=== PATIENT | female | born 1995 | race Caucasian/White ===

== ENCOUNTER 2016-11-10 14:18 | Emergency (ER) | payer OTHER ==
[~2016-11-10] VITALS: Ht 165.1 cm; Wt 80.0 kg
[2016-11-10 14:36] VITALS: BP 134/74; PULSE 124; RESP 18; TEMP 98; O2SAT 99
[2016-11-10 15:10] LABS: AUTOMATED NEUTROPHIL # 6.8 TH/MM3 (1.8-7.7); BASOPHIL % 0.2 % (0.0-2.0); HEMATOCRIT 42.9 % (35.0-46.0); HEMO FLAGS DIFF FINAL; LYMPH % 24.6 % (9.0-44.0); LYMPHOCYTE # 2.4 TH/MM3 (1.0-4.8); MEAN CELL VOLUME 82.9 FL (80.0-100.0); MEAN CORPUSCULAR HEMOGLOBIN 28.3 PG (27.0-34.0); MEAN CORPUSCULAR HGB CONC 34.1 % (32.0-36.0); MONO % 4.5 % (0.0-8.0); NEUT % 70.7 % (16.0-70.0); PLATELET COUNT 299 TH/MM3 (150-450); RED BLOOD COUNT 5.17 MIL/MM3 (4.00-5.30); RED CELL DISTRIBUTION WIDTH 14.7 % (11.6-17.2); WHITE BLOOD COUNT 9.6 TH/MM3 (4.0-11.0)
[2016-11-10 15:35] LABS: ALT (GPT) 46 U/L (10-53); ANION GAP 8 MEQ/L (5-15); AST (GOT) 26 U/L (15-37); BICARBONATE 24.6 MEQ/L (21.0-32.0); BLOOD UREA NITROGEN 8 MG/DL (7-18); CHLORIDE 110 MEQ/L (98-107); GLOMERULAR FILTRATION RATE 106 ML/MIN (>89); POTASSIUM 3.4 MEQ/L (3.5-5.1); SODIUM (NA) 143 MEQ/L (136-145)
[2016-11-10 15:38] LABS: ALKALINE PHOSPHATASE 105 U/L (45-117); TOTAL BILIRUBIN ADULT 0.2 MG/DL (0.2-1.0)
[2016-11-10 15:48] VITALS: BP 147/78; PULSE 89; RESP 17; O2SAT 98
--- NOTE | 2016-11-10 15:51 | RADRPT ---
EXAM DATE/TIME: 11/10/2016 15:23 [facility] COMPARISON: No previous studies available for comparison. INDICATIONS : Right ankle pain, unknown injury. MEDICAL HISTORY : None. SURGICAL HISTORY : None. ENCOUNTER: Initial ACUITY: 1 day PAIN SCORE: 10/10 LOCATION: Right ankle. FINDINGS: There is fracture dislocation about the ankle with a oblique fracture through the distal fibula. The re is a oblique fracture through the posterior malleolus of the tibia with moderate angulation and wi th dislocation of the shaft of the tibia anterior to the talus. There is disruption of the ankle mor tise and the distal tibia is also dislocated medially. No radiopaque foreign bodies. CONCLUSION: Fracture-dislocation of the ankle with both tibia and fibular fractures. Raj Dominguez MD on November 10, 2016 at 15:48 Board Certified Radiologist. This report was verified electronically.
--- NOTE | 2016-11-10 15:57 | PD ---
HPI Chief Complaint: Alcohol/Drug Intoxication Time Seen by Provider: 15:55 Travel History International Travel<30 days: No Contact w/Intl Traveler<30days: No History of Present Illness HPI Patient comes in by EMS after being found intoxicated age. Patient denies any medical complaints or concerns. Patient's right ankle is noted to be slightly swollen. Patient states that she tripped and fell denies hitting her head or a loss consciousness. Denies any pain anywhere else. Patient states she is just resting currently. Patient is obviously intoxicated and is a poor and unreliable historian. [facility] Social History Alcohol Use: Yes Tobacco Use: No Allergies-Medications (Allergen,Severity, Reaction): Coded Allergies: No Known Allergies (Unverified , 11/10/16) Review of Systems ROS Limitations: Intoxication Except as stated in HPI: all other systems reviewed are Neg Physical Exam Exam Limitations: Intoxication Narrative GENERAL: Well-developed, overly nourished, in no acute distress, and non-ill appearing. SKIN: Focused skin assessment warm and dry. HEAD: Atraumatic. Normocephalic. EYES: Pupils equal and round. EOMI. No scleral icterus. No injection or drainage. ENT: No nasal bleeding or discharge. Mucous membranes pink and moist. NECK: Trachea midline. Supple. No nuclear rigidity. CARDIOVASCULAR: Regular rate and rhythm. No murmur appreciated. Dorsalis 2+, intact, and equal bilaterally. Capillary refill less than 2 seconds.. RESPIRATORY: No accessory muscle use. No respiratory distress. Clear to auscultation. Breath sounds equal bilaterally. MUSCULOSKELETAL: No obvious deformities. No clubbing. No cyanosis. No edema. NEUROLOGICAL: Awake and alert. No obvious cranial nerve deficits. Motor grossly within normal limits. PSYCHIATRIC: Appropriate mood and affect; insight and judgment normal. Data Data Last Documented VS Vital Signs Date Time Temp Pulse Resp B/P Pulse Ox O2 Delivery O2 Flow Rate FiO2 11/10/16 15:48 89 17 147/78 98 11/10/16 14:36 98.0 Orders Complete Blood Count With Diff (11/10/16 14:58) Comprehensive Metabolic Panel (11/10/16 14:58) Drug Screen, Random Urine (11/10/16 14:58) Alcohol (Ethanol) (11/10/16 14:58) Ankle, Limited (Ap&Lat) (11/10/16 ) Ct Brain W/O Iv Contrast(Rout) (11/10/16 ) Ct Cerv Spine W/O Contrast (11/10/16 ) Splint Or Brace Apply/Monitor (11/10/16 15:51) Beta Hcg (Quant/Titer) (11/10/16 16:00) Ed Urine Pregnancytest Poc (11/10/16 16:01) Labs Laboratory Tests Test 11/10/16 14:55 White Blood Count 9.6 TH/MM3 Red Blood Count 5.17 MIL/MM3 Hemoglobin 14.6 GM/DL Hematocrit 42.9 % Mean Corpuscular Volume 82.9 FL Mean Corpuscular Hemoglobin 28.3 PG Mean Corpuscular Hemoglobin 34.1 % Concent Red Cell Distribution Width 14.7 % Platelet Count 299 TH/MM3 Mean Platelet Volume 6.7 FL Neutrophils (%) (Auto) 70.7 % Lymphocytes (%) (Auto) 24.6 % Monocytes (%) (Auto) 4.5 % Eosinophils (%) (Auto) 0.0 % Basophils (%) (Auto) 0.2 % Neutrophils # (Auto) 6.8 TH/MM3 Lymphocytes # (Auto) 2.4 TH/MM3 Monocytes # (Auto) 0.4 TH/MM3 Eosinophils # (Auto) 0.0 TH/MM3 Basophils # (Auto) 0.0 TH/MM3 CBC Comment DIFF FINAL Differential Comment Sodium Level 143 MEQ/L Potassium Level 3.4 MEQ/L Chloride Level 110 MEQ/L Carbon Dioxide Level 24.6 MEQ/L Anion Gap 8 MEQ/L Blood Urea Nitrogen 8 MG/DL Creatinine 0.70 MG/DL Estimat Glomerular Filtration 106 ML/MIN Rate Random Glucose 94 MG/DL Calcium Level 8.5 MG/DL Total Bilirubin 0.2 MG/DL Aspartate Amino Transf 26 U/L (AST/SGOT) Alanine Aminotransferase 46 U/L (ALT/SGPT) Alkaline Phosphatase 105 U/L Total Protein 7.8 GM/DL Albumin 4.0 GM/DL Ethyl Alcohol Level 303 MG/DL [facility] Medical Decision Making Medical Screen Exam Complete: Yes Emergency Medical Condition: Yes Differential Diagnosis Fracture, sprain, contusion, alcohol intoxication, acute abnormality, head injury, other Narrative Course Patient was initially seen and exam. Initial radiological studies were ordered. Patient signed out to Dr. Jarquin. Please see her documentation for final diagnosis and disposition. Gilberto Dong Nov 10, 2016 15:57
[2016-11-10] MEDS ORDERED: ONDANSETRON HCL 4 MG/2 ML VIAL ONE (16:14)
[2016-11-10] MEDS ORDERED: ONDANSETRON HCL 4 MG/2 ML VIAL IV PUSH ONE (16:15)
[2016-11-10] MEDS ORDERED: ETOMIDATE 20 MG/10 ML VIAL IV PUSH ONE (16:15)
[2016-11-10] MEDS ORDERED: MORPHINE SULFATE 4 MG/ML INJ IV PUSH ONE (16:15)
[2016-11-10] MEDS ORDERED: SODIUM CHLOR 0.9% 1000 ML INJ 1,000 ML IV ONE (16:15)
[2016-11-10 16:30] VITALS: O2SAT 99
--- NOTE | 2016-11-10 16:45 | PD ---
Physical Exam Date Seen by Provider: Nov 10, 2016 Data Data Last Documented VS Vital Signs Date Time Temp Pulse Resp B/P Pulse Ox O2 Delivery O2 Flow Rate FiO2 11/10/16 16:46 20 11/10/16 16:30 99 Nasal Cannula 6.00 11/10/16 15:48 89 147/78 11/10/16 14:36 98.0 Orders Complete Blood Count With Diff (11/10/16 14:58) Comprehensive Metabolic Panel (11/10/16 14:58) Drug Screen, Random Urine (11/10/16 14:58) Alcohol (Ethanol) (11/10/16 14:58) Ankle, Limited (Ap&Lat) (11/10/16 ) Ct Brain W/O Iv Contrast(Rout) (11/10/16 ) Ct Cerv Spine W/O Contrast (11/10/16 ) Splint Or Brace Apply/Monitor (11/10/16 15:51) Ed Urine Pregnancytest Poc (11/10/16 16:01) Etomidate Inj (Amidate Inj) (11/10/16 16:15) Morphine Inj (Morphine Inj) (11/10/16 16:15) Sodium Chlor 0.9% 1000 Ml Inj (Ns 1000 M (11/10/16 16:15) Ondansetron Inj (Zofran Inj) (11/10/16 16:15) Ondansetron Inj (Zofran Inj) (11/10/16 16:14) Ankle, Limited (Ap&Lat) (11/10/16 ) Ankle, Limited (Ap&Lat) (11/10/16 ) Haloperidol Inj (Haldol Inj) (11/10/16 17:00) Lorazepam Inj (Ativan Inj) (11/10/16 17:00) Fiberglass Short Leg Splint Ad (11/10/16 ) Fiberglass Sugartong Sp Ad Sl (11/10/16 ) ^ Sitter (11/10/16 17:22) Admit Order (Ed Use Only) (11/10/16 17:48) Labs Laboratory Tests Test 11/10/16 14:55 White Blood Count 9.6 TH/MM3 Red Blood Count 5.17 MIL/MM3 Hemoglobin 14.6 GM/DL Hematocrit 42.9 % Mean Corpuscular Volume 82.9 FL Mean Corpuscular Hemoglobin 28.3 PG Mean Corpuscular Hemoglobin 34.1 % Concent Red Cell Distribution Width 14.7 % Platelet Count 299 TH/MM3 Mean Platelet Volume 6.7 FL Neutrophils (%) (Auto) 70.7 % Lymphocytes (%) (Auto) 24.6 % Monocytes (%) (Auto) 4.5 % Eosinophils (%) (Auto) 0.0 % Basophils (%) (Auto) 0.2 % Neutrophils # (Auto) 6.8 TH/MM3 Lymphocytes # (Auto) 2.4 TH/MM3 Monocytes # (Auto) 0.4 TH/MM3 Eosinophils # (Auto) 0.0 TH/MM3 Basophils # (Auto) 0.0 TH/MM3 CBC Comment DIFF FINAL Differential Comment Sodium Level 143 MEQ/L Potassium Level 3.4 MEQ/L Chloride Level 110 MEQ/L Carbon Dioxide Level 24.6 MEQ/L Anion Gap 8 MEQ/L Blood Urea Nitrogen 8 MG/DL Creatinine 0.70 MG/DL Estimat Glomerular Filtration 106 ML/MIN Rate Random Glucose 94 MG/DL Calcium Level 8.5 MG/DL Total Bilirubin 0.2 MG/DL Aspartate Amino Transf 26 U/L (AST/SGOT) Alanine Aminotransferase 46 U/L (ALT/SGPT) Alkaline Phosphatase 105 U/L Total Protein 7.8 GM/DL Albumin 4.0 GM/DL Ethyl Alcohol Level 303 MG/DL [facility] Medical Record Reviewed: Yes Supervised Visit with BECCA: Yes Narrative Course I, Dr. Jarquin, have reviewed the advance practice practitioner's documentation and am in agreement, met with the patient face to face, made the diagnosis, and the medical decision making was done by me. *My assessment and Findings: Acute alcohol intoxication with right-sided fracture of the tibia and fibula Patient is a 20-year-old female who was found by EMS intoxicated. It was noted that her right ankle appeared swollen and her patient reports that she twisted her ankle Patient denies suicidal or homicidal ideations, reports that she had 3 drinks today and may have drank too much. After patient reduced, patient began to ambulate, patient require soft restraints as well as chemical sedation, xray ordered again to make sure fx was reduced Patient required mechanical sedation for her safety global safety officer at bedside case reviewed with dr. harrison, will keep patient NPO after midnight and plan for OR tomorrow case reviewed with patients father at patient's request [phone] does not want patient admitted to [facility], reports that he is a physician at a hospital in [facility], would like patient operated there call made to Dr. Harrison - will take patient off of OR schedule Critical Care Narrative Aggregate critical care time was 30 minutes. Time to perform other separately billable procedures was not included in the critical care time. My time did not include minutes spent treating any other patients simultaneously or on activities that did not directly contribute to the patient's treatment. The services I provided to this patient were to treat and/or prevent clinically significant deterioration that could result in: , decompensation, deterioration I provided critical care services requiring my management, as noted below: Chart data review, documentation time, medication orders and management, vital sign assessments/reviewing monitor data, ordering and reviewing lab tests, ordering and interpreting/reviewing x-rays and diagnostic studies, care of the patient and discussion of the patient with the admitting physicians. Procedures Procedure Narrative After the risks and benefits were discussed the following procedure was performed: 1)Conscious sedation: The patient was put in optimal position for the procedure. Patient was given 20 mg of etomidate IV as well as 4 mg of morphine as well as 4 mg of IV Zofran. Patient was placed on oxygen, ekg monitor and was placed on end tidal CO2, avionic technician at bedside Patient tolerated procedure well. 2) Right ankle fracture: patient with fracture dislocation to tibia and fibula. Traction and counter traction applied, ankle reduced. Post reduction films ordered. Patient splinted by cartography technician Sree Diagnosis Primary Impression: Alcohol intoxication Qualified Code: F10.120 - Alcohol intoxication, uncomplicated Additional Impression: Ankle fracture, right Qualified Code: S82.891A - Ankle fracture, right, closed, initial encounter Admitting Information Admitting Physician Requests: Admit Patient Instructions: General Instructions, Narcotic given in the ED, Moderate Sedation (ED) Additional Instruction: please follow up with orthopedic surgery as soon as possible return to ER as needed please do not ambulate on right lower extremity Please bring the copy of your xray reports as well as xray disc to your orthopedic surgeon's office for follow up Varsha Jarquin DO Nov 10, 2016 16:45
[2016-11-10 17:00] VITALS: BP 124/65; PULSE 89; RESP 18; O2SAT 98
[2016-11-10] MEDS ORDERED: HALOPERIDOL LACTATE 5 MG/ML AMP IM ONE (17:00)
[2016-11-10] MEDS ORDERED: LORazepam 2 MG/ML VIAL IM ONE (17:00)
--- NOTE | 2016-11-10 17:22 | RADRPT ---
EXAM DATE/TIME: 11/10/2016 16:34 [facility] COMPARISON: ANKLE RIGHT LIMITED (AP&LAT), November 10, 2016, 15:23. INDICATIONS : Post reduction of the right ankle. MEDICAL HISTORY : None. SURGICAL HISTORY : None. ENCOUNTER: Subsequent ACUITY: 1 day PAIN SCORE: 6/10 LOCATION: Right ankle. FINDINGS: 2 view examination of the ankle performed in fiberglass cast. In lateral projection, the tibia and t alus are no in alignment. The oblique fracture of the distal fibula is mildly angulated without disp lacement. CONCLUSION: Status post reduction of fracture/dislocation of the ankle. Raj Dominguez MD on November 10, 2016 at 17:19 Board Certified Radiologist. This report was verified electronically.
--- NOTE | 2016-11-10 17:42 | RADRPT ---
EXAM DATE/TIME: 11/10/2016 17:01 Two-view examination is performed in cast and compared to examination from one half hour before. The re is a change in the alignment of the distal fibular fracture, with slightly greater anterior angula tion and some posterior displacement. Ankle mortise is intact. Raj Dominguez MD on November 10, 2016 at 17:41 on November 10, 2016 Board Certified Radiologist. This report was verified electronically.
[2016-11-10 18:30] VITALS: BP 104/53; PULSE 82; RESP 18; O2SAT 98
--- NOTE | 2016-11-10 18:56 | RADRPT ---
EXAM DATE/TIME: 11/10/2016 18:39 [facility] COMPARISON: No previous studies available for comparison. INDICATIONS : Trauma. Fall. RADIATION DOSE: 31.36 CTDIvol (mGy) MEDICAL HISTORY : None SURGICAL HISTORY : None. ENCOUNTER: Initial ACUITY: 1 day PAIN SCALE: 0/10 LOCATION: cranial TECHNIQUE: Multiple contiguous axial images were obtained of the head. Using automated exposure control and adj ustment of the mA and/or kV according to patient size, radiation dose was kept as low as reasonably a chievable to obtain optimal diagnostic quality images. FINDINGS: CEREBRUM: The ventricles are normal for age. No evidence of midline shift, mass lesion, hemorrhage or acute in farction. No extra-axial fluid collections are seen. POSTERIOR FOSSA: The cerebellum and brainstem are intact. The 4th ventricle is midline. The cerebellopontine angle i s unremarkable. EXTRACRANIAL: The visualized portion of the orbits is intact. SKULL: The calvaria is intact. No evidence of skull fracture. CONCLUSION: Normal examination. Raj Bunn Jr., MD on November 10, 2016 at 18:54 Board Certified Radiologist. This report was verified electronically.
--- NOTE | 2016-11-10 19:05 | PD ---
Physical Exam Date Seen by Provider: Nov 10, 2016 Time Seen by Provider: 19:03 Narrative The patient is a 20-year-old female was initially evaluated by the previous physician, Dr. Jaqruin. Please refer to the initial history, physical, diagnostic evaluation, and treatment modality plan. The patient was signed out at [address] of the brain and cervical spine pending. Data Data Last Documented VS Vital Signs Date Time Temp Pulse Resp B/P Pulse Ox O2 Delivery O2 Flow Rate FiO2 11/10/16 17:00 89 18 124/65 98 Room Air 11/10/16 16:30 6.00 11/10/16 14:36 98.0 Orders Complete Blood Count With Diff (11/10/16 14:58) Comprehensive Metabolic Panel (11/10/16 14:58) Drug Screen, Random Urine (11/10/16 14:58) Alcohol (Ethanol) (11/10/16 14:58) Ankle, Limited (Ap&Lat) (11/10/16 ) Ct Brain W/O Iv Contrast(Rout) (11/10/16 ) Ct Cerv Spine W/O Contrast (11/10/16 ) Splint Or Brace Apply/Monitor (11/10/16 15:51) Ed Urine Pregnancytest Poc (11/10/16 16:01) Etomidate Inj (Amidate Inj) (11/10/16 16:15) Morphine Inj (Morphine Inj) (11/10/16 16:15) Sodium Chlor 0.9% 1000 Ml Inj (Ns 1000 M (11/10/16 16:15) Ondansetron Inj (Zofran Inj) (11/10/16 16:15) Ondansetron Inj (Zofran Inj) (11/10/16 16:14) Ankle, Limited (Ap&Lat) (11/10/16 ) Ankle, Limited (Ap&Lat) (11/10/16 ) Haloperidol Inj (Haldol Inj) (11/10/16 17:00) Lorazepam Inj (Ativan Inj) (11/10/16 17:00) Fiberglass Short Leg Splint Ad (11/10/16 ) Fiberglass Sugartong Sp Ad Sl (11/10/16 ) ^ Sitter (11/10/16 17:22) Admit Order (Ed Use Only) (4/19/17 17:48) Labs Laboratory Tests Test 11/10/16 14:55 White Blood Count 9.6 TH/MM3 Red Blood Count 5.17 MIL/MM3 Hemoglobin 14.6 GM/DL Hematocrit 42.9 % Mean Corpuscular Volume 82.9 FL Mean Corpuscular Hemoglobin 28.3 PG Mean Corpuscular Hemoglobin 34.1 % Concent Red Cell Distribution Width 14.7 % Platelet Count 299 TH/MM3 Mean Platelet Volume 6.7 FL Neutrophils (%) (Auto) 70.7 % Lymphocytes (%) (Auto) 24.6 % Monocytes (%) (Auto) 4.5 % Eosinophils (%) (Auto) 0.0 % Basophils (%) (Auto) 0.2 % Neutrophils # (Auto) 6.8 TH/MM3 Lymphocytes # (Auto) 2.4 TH/MM3 Monocytes # (Auto) 0.4 TH/MM3 Eosinophils # (Auto) 0.0 TH/MM3 Basophils # (Auto) 0.0 TH/MM3 CBC Comment DIFF FINAL Differential Comment Sodium Level 143 MEQ/L Potassium Level 3.4 MEQ/L Chloride Level 110 MEQ/L Carbon Dioxide Level 24.6 MEQ/L Anion Gap 8 MEQ/L Blood Urea Nitrogen 8 MG/DL Creatinine 0.70 MG/DL Estimat Glomerular Filtration 106 ML/MIN Rate Random Glucose 94 MG/DL Calcium Level 8.5 MG/DL Total Bilirubin 0.2 MG/DL Aspartate Amino Transf 26 U/L (AST/SGOT) Alanine Aminotransferase 46 U/L (ALT/SGPT) Alkaline Phosphatase 105 U/L Total Protein 7.8 GM/DL Albumin 4.0 GM/DL Ethyl Alcohol Level 303 MG/DL [facility] Medical Record Reviewed: Yes Supervised Visit with BECCA: No Interpretation(s) Laboratory Tests Test 11/10/16 14:55 White Blood Count 9.6 TH/MM3 Red Blood Count 5.17 MIL/MM3 Hemoglobin 14.6 GM/DL Hematocrit 42.9 % Mean Corpuscular Volume 82.9 FL Mean Corpuscular Hemoglobin 28.3 PG Mean Corpuscular Hemoglobin 34.1 % Concent Red Cell Distribution Width 14.7 % Platelet Count 299 TH/MM3 Mean Platelet Volume 6.7 FL Neutrophils (%) (Auto) 70.7 % Lymphocytes (%) (Auto) 24.6 % Monocytes (%) (Auto) 4.5 % Eosinophils (%) (Auto) 0.0 % Basophils (%) (Auto) 0.2 % Neutrophils # (Auto) 6.8 TH/MM3 Lymphocytes # (Auto) 2.4 TH/MM3 Monocytes # (Auto) 0.4 TH/MM3 Eosinophils # (Auto) 0.0 TH/MM3 Basophils # (Auto) 0.0 TH/MM3 CBC Comment DIFF FINAL Differential Comment Sodium Level 143 MEQ/L Potassium Level 3.4 MEQ/L Chloride Level 110 MEQ/L Carbon Dioxide Level 24.6 MEQ/L Anion Gap 8 MEQ/L Blood Urea Nitrogen 8 MG/DL Creatinine 0.70 MG/DL Estimat Glomerular Filtration 106 ML/MIN Rate Random Glucose 94 MG/DL Calcium Level 8.5 MG/DL Total Bilirubin 0.2 MG/DL Aspartate Amino Transf 26 U/L (AST/SGOT) Alanine Aminotransferase 46 U/L (ALT/SGPT) Alkaline Phosphatase 105 U/L Total Protein 7.8 GM/DL Albumin 4.0 GM/DL Ethyl Alcohol Level 303 MG/DL Last Impressions Head CT 11/10/16 0000 Signed Impressions: Service Date/Time: Thursday, November 10, 2016 18:39 - CONCLUSION: Normal examination. Raj Bunn Jr., MD Ankle X-Ray 11/10/16 0000 Signed Impressions: Service Date/Time: Thursday, November 10, 2016 16:34 - CONCLUSION: Status post reduction of fracture/dislocation of the ankle. Raj Dominguez MD Ankle X-Ray 11/10/16 0000 Signed Impressions: Service Date/Time: Thursday, November 10, 2016 15:23 - CONCLUSION: Fracture-dislocation of the ankle with both tibia and fibular fractures. Raj Dominguez MD CT of the cervical spine reveals normal examination CT of the brain reveals a normal examination Differential Diagnosis Differential diagnosis includes alcohol intoxication, ankle fracture, ankle dislocation, closed head injury, joint cranial hemorrhage, cervical spine injury , polysubstance abuse, mechanical fall. Narrative Course The patient was initially evaluated by the previous physician, Dr. Jarquin. Please refer to the initial history, physical, diagnostic evaluation, and treatment modality plan. Patient was signed out at [address] the brain and cervical spine pending. According to Dr. Jarquin the patient was intoxicated earlier today and injured and ankle. The patient was noted to have an ankle fracture/dislocation which was reduced. However, the patient was intoxicated and got up and walk on her ankle once again. The patient subsequently placed in a splint. The patient's father is a physician in [place], [place]. According to Dr. Jarquin the father requested that the patient be discharged and he will take the patient to the hospital where he is employed. Records including images of the patient's imaging for requested, will be provided with the patient upon discharge for follow-up. CT of the brain and cervical spine are normal, patient will be discharged with family who will follow-up with orthopedics. Diagnosis Primary Impression: Alcohol intoxication Qualified Code: F10.120 - Alcohol intoxication, uncomplicated Additional Impression: Ankle fracture, right Qualified Code: S82.891A - Ankle fracture, right, closed, initial encounter Patient Instructions: General Instructions, Narcotic given in the ED, Moderate Sedation (ED) Additional Instruction: please follow up with orthopedic surgery as soon as possible return to ER as needed please do not ambulate on right lower extremity Please bring the copy of your xray reports as well as xray disc to your orthopedic surgeon's office for follow up Med/Other Pt SpecificInfo: No Change to Meds Disposition: 01 DISCHARGE HOME Condition: Stable Moo Freire MD Nov 10, 2016 19:05
--- NOTE | 2016-11-10 19:10 | RADRPT ---
EXAM DATE/TIME: 11/10/2016 18:43 [facility] COMPARISON: No previous studies available for comparison. INDICATIONS : Trauma. Fall. RADIATION DOSE: 32.80 CTDIvol (mGy) MEDICAL HISTORY : None SURGICAL HISTORY : None. ENCOUNTER: Initial ACUITY: 1 day PAIN SCALE: 0/10 LOCATION: neck TECHNIQUE: Volumetric scanning of the cervical spine was performed. Multiplanar reconstructions in the sagittal, coronal and oblique axial planes were performed. Using automated exposure control and adjustment o f the mA and/or kV according to patient size, radiation dose was kept as low as reasonably achievable to obtain optimal diagnostic quality images. FINDINGS: VERTEBRAE: Normal vertebral body height. ALIGNMENT: No evidence of subluxation. C2-C3: The bony spinal canal is normal in size. No evidence of disc bulge or herniation. The neural forami na are bilaterally patent. C3-C4: The bony spinal canal is normal in size. No evidence of disc bulge or herniation. The neural forami na are bilaterally patent. C4-C5: The bony spinal canal is normal in size. No evidence of disc bulge or herniation. The neural forami na are bilaterally patent. C5-C6: The bony spinal canal is normal in size. No evidence of disc bulge or herniation. The neural forami na are bilaterally patent. C6-C7: The bony spinal canal is normal in size. No evidence of disc bulge or herniation. The neural forami na are bilaterally patent. C7-T1: The bony spinal canal is normal in size. No evidence of disc bulge or herniation. The neural forami na are bilaterally patent. CONCLUSION: Normal examination. Raj Bunn Jr., MD on November 10, 2016 at 19:07 Board Certified Radiologist. This report was verified electronically.
--- NOTE | 2016-11-11 13:47 | EKG ---
Date Performed: 11/10/2016 Time Performed: 17:45:01 PTAGE: 20 years EKG: SINUS TACHYCARDIA NONSPECIFIC T-WAVE ABNORMALITY ABNORMAL RHYTHM ECG NO PREVIOUS TRACING DOCTOR: Steve England Interpretating Date/Time 11/11/2016 13:42:29
== END 2016-11-10 20:50 | disposition home or self-care (01) ==
LOC: NEPC 14:18 → NEDA 17:50 → UNDOADMIN 17:50 → UNDODISIN 20:50 → NEPC 20:50
DX: S82.51XA Displaced fracture of medial malleolus of right tibia, initial encounter for closed fracture (principal); S82.61XA Displaced fracture of lateral malleolus of right fibula, initial encounter for closed fracture; F10.120 Alcohol abuse with intoxication, uncomplicated; R00.0 Tachycardia, unspecified; Y90.8 Blood alcohol level of 240 mg/100 ml or more; X50.1XXA Overexertion from prolonged static or awkward postures, initial encounter; Y93.9 Activity, unspecified; Y92.9 Unspecified place or not applicable; Y99.9 Unspecified external cause status
CPT/HCPCS: 27840; 70450; 72125; 73600; 80053; 80307; 84703; 85025; 93005; 96374; 96375; 99152; 99285; J1630; J2060; J2270; J2405; J7030